=== PATIENT | male | born 1965 | race Caucasian/White ===

== ENCOUNTER → 2020-11-17 | Outpatient (CLI) | payer MEDICARE | LOC: EXRD 09:13 | DX: M15.9 Polyosteoarthritis, unspecified (principal); R29.898 Other symptoms and signs involving the musculoskeletal system; M25.512 Pain in left shoulder | CPT/HCPCS: 73030 ==

== ENCOUNTER → 2021-10-07 | Outpatient (CLI) | payer MEDICARE | LOC: KOH-I 12:16 | DX: F17.210 Nicotine dependence, cigarettes, uncomplicated (principal); R91.8 Other nonspecific abnormal finding of lung field | CPT/HCPCS: 71271 ==

== ENCOUNTER → 2021-12-23 | Outpatient (CLI) | payer MEDICARE | LOC: EXRD 10:05 | DX: R63.4 Abnormal weight loss (principal) | CPT/HCPCS: 71046 ==